=== PATIENT | male | born 1950 | race Caucasian/White ===

== ENCOUNTER 2025-02-05 17:13 | Inpatient (IN) | payer MEDICARE, OTHER ==
[~2025-02-05] VITALS: Ht 167.6 cm; Wt 89.1 kg
[2025-02-05] MEDS ORDERED: VANCOMYCIN 1GM/250ML KIT 250 ML IV ONE (17:30)
--- NOTE | 2025-02-05 17:46 | ED.PDOC ---
History of Present Illness HPI Comments 74 y/o M BECKY, with PMHX of HTN, COPD, and DM presents to the ED for CC of ALOC. Per EMS, patient began to display altered level of conscious x45 min ago. EMS states, upon arrival to scene patient was lethargic and A&Ox2. Patient states, it is 195 and he is 52 years old. Per patient's daughter (power of patent prosecution attorney), patient has been fighting a cold x2days however, he has never became altered in the past. No other history or symptoms obtainable at this time. Time Seen by MD: 17:20 Reviewed Notes: Nurses Notes, Electrical Appliance Servicer Notes, Medications, Allergies Allergies: Coded Allergies: NO KNOWN ALLERGIES (Unverified , 02/05/25) Information Source: Relative (Child), Emergency Med Personnel Mode of Arrival: EMS Severity: Moderate Timing: Minutes Duration: Since onset Prehospital treatment: None Past Medical History PAST MEDICAL HISTORY: COPD, DM, HTN Surgical History: Denies all surgeries Family History Family History: Unknown Social History Smoker: Non-Smoker Alcohol: Denies ETOH Use Drugs: Denies Drug Use Lives In: Home Unable to Obtain due to: Altered Mental Status Physical Exam General Appearance: Moderate Distress HEENT: Normal ENT Inspection, Pharynx Normal, TMs Normal Neck: Full Range of Motion, Non-Tender, Normal, Normal Inspection Respiratory: Chest Non-Tender, Lungs Clear, No Accessory Muscle Use, No Respiratory Distress, Normal Breath Sounds Cardiovascular: No Edema, No JVD, No Murmur, No Gallop, Normal Peripheral Pulses, Regular Rate/Rhythm Breast Exam: Deferred Gastrointestinal: No Organomegaly, Non Tender, No Pulsatile Mass, Normal Bowel Sounds, Soft Genitalia: Deferred Pelvic: Deferred Rectal: Deferred Extremities: No calf tenderness, Normal capillary refill, No pedal edema Musculoskeletal : Apperance: Normal Neurologic: multi operation forming machine setter II-XII nml as Tested, Motor Weakness, No Sensory Deficits, Other (Altered mental status) Cerebellar Function: Unable to Test Reflexes: Normal Skin: Dry, Pallor, Warm Lymphatic: No Adenopathy Was a procedure done? Was a procedure done?: No EKG EKG : Pulse Rate (adult): 119 Ellis: Normal Cardiac Rhythm: ST Block: None Hypertrophy: None ST: Normal Differential Dx Considerations may include: Sepsis, UTI, CVA, generalized weakness X-Ray, Labs, Meds, VS Vital Signs Date Time Temp Pulse Resp B/P (MAP) Pulse Ox O2 Delivery O2 Flow Rate FiO2 02/05/25 19:45 101.1 107 18 131/64 (86) 95 101.1 02/05/25 18:40 117 14 94 Nasal Cannula* 2 28 02/05/25 18:40 98.4 117 14 136/76 (96) 94 98.4 02/05/25 17:59 102.3 02/05/25 17:48 102.3 126 22 147/82 (103) 96 02/05/25 17:46 119 02/05/25 17:38 119 Lab Test 02/05/25 18:50 02/05/25 18:43 Range/Units Urine Color Light-yellow Yellow Urine Clarity Clear Clear Urine pH 5.5 5.0-9.0 Urine Specific [place] 1.019 1.001-1.035 Urine Protein Negative Negative Urine Ketones Negative Negative Urine Blood Negative Negative /uL Urine Nitrite Negative Negative Urine Bilirubin Negative Negative Urine Urobilinogen Normal Negative mg/dL Urine Leukocyte Esterase Negative Negative /uL Urine RBC 2 0 - 3 /hpf Urine Microscopic WBC 1 0-3 /HPF Urine Squamous Epithelial Cells None seen <5 /hpf Urine Bacteria None seen None Seen /hpf Urine Glucose Normal Normal mg/dL White Blood Count 7.8 4.4-10.8 10^3/uL Red Blood Count 4.90 4.5-5.90 10^6/uL Hemoglobin 14.1 13.5-17.5 g/dL Hematocrit 42.9 41.0-53.0 % Mean Corpuscular Volume 87.6 80.0-100.0 fL Mean Corpuscular Hemoglobin 28.7 28.0-32.0 pg Mean Corpuscular Hemoglobin Concent 32.8 32.0-36.0 g/dL Red Cell Distribution Width 15.5 H 11.8-14.3 % Platelet Count 284 140-450 10^3/uL Mean Platelet Volume 7.9 6.9-10.8 fL Neutrophils (%) (Auto) 73.0 37.0-80.0 % Lymphocytes (%) (Auto) 17.3 10.0-50.0 % Monocytes (%) (Auto) 9.1 0.0-12.0 % Eosinophils (%) (Auto) 0.3 0.0-7.0 % Basophils (%) (Auto) 0.3 0.0-2.0 % Neutrophils # (Auto) 5.7 1.6-8.6 10 ^3/uL Lymphocytes # (Auto) 1.4 0.4-5.4 10 ^3/uL Monocytes # (Auto) 0.7 0-1.3 10 ^3/uL Eosinophils # (Auto) 0 0-0.8 10 ^3/uL Basophils # (Auto) 0 0-0.2 10 ^3/uL Nucleated Red Blood Cells 0.2 % Sodium Level 137 136-145 mmol/L Potassium Level 4.4 3.5-5.1 mmol/L Chloride Level 103 98-107 mmol/L Carbon Dioxide Level 24 20-31 mmol/L Anion Gap 10 5-15 Blood Urea Nitrogen 12 9-23 mg/dL Creatinine 1.18 0.700-1.30 mg/dL Glomerular Filtration Rate Calc 65 >90 mL/min BUN/Creatinine Ratio 10.2 10.0-20.0 Serum Glucose 130 H 74-106 mg/dL Lactic Acid Level 2.5 *H 0.4-2.0 mmol/L Calcium Level 9.5 8.7-10.4 mg/dL Current Medications Medications (Trade) Dose Ordered Sig/Missy Route Start Time Stop Time Status Last Admin Sodium Chloride 1,000 ml @ 150 mls/hr Q6H40M ONCE IV 02/05/25 17:30 02/06/25 00:09 02/05/25 19:28 Acetaminophen (Tylenol Tablet) 650 mg ONCE ONCE PO 02/05/25 17:30 02/05/25 17:32 DC 02/05/25 17:59 Ceftriaxone Sodium 50 ml @ 100 mls/hr ONCE ONCE IV 02/05/25 17:30 02/05/25 17:59 DC 02/05/25 19:28 CXR: FINDINGS: Lines and Tubes: None Lungs: No focal consolidation. Pleura: No effusion. No pneumothorax. Cardiomediastinal contours: Unremarkable Bones: No acute osseous abnormality. IMPRESSION: 1. No acute cardiopulmonary disease. ATED BY: RODOLFO OSMAN MD DICTATED DATE/TIME: 02/05/251914 SIGNED BY: RODOLFO OSMAN MD SIGNED DATE/TIME: 02/05/251914 CC: HEAD CT: FINDINGS: Mild generalized cerebral atrophy. No acute intracranial hemorrhage or evidence of large vessel territorial infarction identified at this time. No midline shift. The basilar cisterns are patent. The visualized paranasal sinuses and mastoid air cells are clear. No grossly displaced calvarial abnormalities identified. IMPRESSION: No acute intracranial findings. ATED BY: SHAUN BELL MD DICTATED DATE/TIME: 02/05/251916 SIGNED BY: SHAUN BELL MD SIGNED DATE/TIME: 02/05/251916 CC: At this time, the CBC is within normal limits The chemistry panel is also within normal limits. The patient was lactic acid level came back at 2.5 Blood cultures were drawn on this patient After blood cultures were drawn, the patient was started on Rocephin as well as vancomycin The urine test is negative at this time The patient was febrile upon arrival so was given acetaminophen 650 mg by mouth The patient was being admitted at this time. Images Reviewed?: Images reviewed and evaluated by me Time of 1ST Reevaluation: 17:50 Reevaluation 1ST: Unchanged Patient Education/Counseling: Diagnosis, Treatment, Prognosis Family Education/Counseling: Diagnosis, Treatment, Prognosis Departure 1 Departure Time of Disposition: 20:08 Impression: Primary Impression: Metabolic encephalopathy Additional Impression: Sepsis Qualified Codes: A41.9 - Sepsis, unspecified organism Disposition: ADMITTED INPATIENT [facility]mit to[facility] Condition: Fair Critical Care Note Critical Care Time?: Yes (55 min-critical care time only) Stability Stability form required: Yes Unstable for transfer: Telemetry monitoring (Telemetry monitoring required), ED Physician Assesment (Clinical assesment) Heart Score Heart Score: Heart Score Response (Comments) Value History N/A 0 EKG N/A 0 Age N/A 0 Risk Factors N/A 0 Troponin N/A 0 Total 0 I personally scribed for LUCÍA BARRON MD ([email or web address]) on 02/05/25 at 17:46. Electronically submitted by Lois Sheridan ([email or web address]). I personally scribed for LUCÍA BARRON MD ([email or web address]) on 3/12/25 at 19:52. Electronically submitted by Lois Sheridan ([email or web address]). I personally scribed for LUCÍA BARRON MD ([email or web address]) on 02/05/25 at 19:53. Electronically submitted by Lois Sheridan [email or web address]). LUCÍA BARRON MD Feb 05, 2025 17:46
[2025-02-05] MEDS: ACETAMINOPHEN 325 MG TAB PO ONE (17:59)
[2025-02-05 18:40] VITALS: PULSE 117; RESP 14; O2SAT 94
--- NOTE | 2025-02-05 18:53 | ECG ---
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
[2025-02-05 18:55] LABS: Urine Bacteria None Seen /hpf (None Seen)
[2025-02-05 19:02] LABS: Urine Blood Negative /uL (Negative); Urine Clarity Clear (Clear); Urine Color Light-Yellow (Yellow); Urine Protein, UAD Negative (Negative); Urine Specific Gravity 1.019 (1.001-1.035); Urine Squamous Epithelial Cell None Seen /hpf (<5); Urine Urobilinogen Normal (Negative); Urine WBC 1 /HPF (0-3); Urine pH 5.5 (5.0-9.0)
[2025-02-05 19:03] LABS: Basophils # (auto) 0 10 ^3/uL (0-0.2); Basophils % (auto) 0.3 % (0.0-2.0); Eosinophils # (auto) 0 10 ^3/uL (0-0.8); Eosinophils % (auto) 0.3 % (0.0-7.0); Hematocrit 42.9 % (41.0-53.0); Hemoglobin 14.1 g/dL (13.5-17.5); Lymphocytes # (auto) 1.4 10 ^3/uL (0.4-5.4); Lymphocytes % (auto) 17.3 % (10.0-50.0); Mean Corpuscular Hemoglobin 28.7 pg (28.0-32.0); Mean Corpuscular Hgb Conc. 32.8 g/dL (32.0-36.0); Mean Corpuscular Volume 87.6 fL (80.0-100.0); Monocytes # (auto) 0.7 10 ^3/uL (0-1.3); Monocytes % (auto) 9.1 % (0.0-12.0); Neutrophils # (auto) 5.7 10 ^3/uL (1.6-8.6); Nucleated Red Blood Cells % 0.2 %; Platelet Count (auto) 284 10^3/uL (140-450); Red Cell Distribution Width 15.5 % (11.8-14.3); White Blood Cell 7.8 10^3/uL (4.4-10.8)
[2025-02-05 19:11] LABS: Chloride 103 mmol/L (98-107); Potassium 4.4 mmol/L (3.5-5.1); Sodium 137 mmol/L (136-145)
[2025-02-05 19:12] LABS: Anion Gap 10 (5-15); Calcium 9.5 mg/dL (8.7-10.4); Carbon Dioxide 24 mmol/L (20-31)
[2025-02-05 19:17] LABS: BUN/Creatinine Ratio 10.2 (10.0-20.0); Blood Urea Nitrogen 12 mg/dL (9-23)
--- NOTE | 2025-02-05 19:18 | DVH ---
CHEST RADIOGRAPH Indication: pain Technique: Single frontal view of the chest was obtained Comparison: None FINDINGS: Lines and Tubes: None Lungs: No focal consolidation. Pleura: No effusion. No pneumothorax. Cardiomediastinal contours: Unremarkable Bones: No acute osseous abnormality. IMPRESSION: 1. No acute cardiopulmonary disease.
[2025-02-05 19:19] LABS: Glucose 130 mg/dL (74-106)
--- NOTE | 2025-02-05 19:20 | DVH ---
CT BRAIN WITHOUT CONTRAST HISTORY: aloc TECHNIQUE: Axial scans were obtained from the skull base through the vertex without contrast. [place] l and coronal reformats were generated. One or more of the following radiation dose reduction techniq ues were used for this examination: automated exposure control, adjustment of the mA and/or kV accord ing to patient size, use of iterative reconstruction technique. COMPARISON: None FINDINGS: Mild generalized cerebral atrophy. No acute intracranial hemorrhage or evidence of large vessel zack torial infarction identified at this time. No midline shift. The basilar cisterns are patent. The visualized paranasal sinuses and mastoid air cells are clear. No grossly displaced calvarial abno rmalities identified. IMPRESSION: No acute intracranial findings.
[2025-02-05] MEDS: SODIUM CHLORIDE 0.9% 1,000 ML IV ONE ×2 (19:28→23:00)
[2025-02-05] MEDS: cefTRIAXone 1GM/50ML D5W 50 ML IV ONE (19:28)
[2025-02-05 19:43] LABS: Lactic Acid w/Reflex 2.5 mmol/L (0.4-2.0)
[2025-02-05 21:00] VITALS: PULSE 107; RESP 18; O2SAT 95
[2025-02-05 21:44] LABS: COVID19 ANTIGEN SOFIA FIA NEGATIVE (NEGATIVE); Rapid Influenza A Negative (Negative); Rapid Influenza B Negative (Negative)
[2025-02-05] MEDS ORDERED: DOCUSATE SOD 100 MG CAP PO PRN ×2 (22:15→23:00)
[2025-02-05] MEDS ORDERED: MORPHINE SULFATE INJ 2 MG/ml SYRG IV PRN (22:15)
[2025-02-05] MEDS ORDERED: VANCOMYCIN PER PHARMACY 0 MG IV SCH (22:15)
[2025-02-05] MEDS ORDERED: ONDANSETRON HCL 4 MG/2 ML VIAL IV PRN ×2 (22:15→23:00)
[2025-02-05] MEDS ORDERED: ACETAMINOPHEN 325 MG TAB PO PRN (22:15)
--- NOTE | 2025-02-05 22:19 | DVHHPRES ---
History of Present Illness Resident Creating Document: ALLY GALINDO RESDIENT History of Present Illness This is a 74-year-old male with past history of COPD, hypertension, prediabetic, dyslipidemia, BPH and chronic back pain brought to the hospital due to alveolar ALOC. Per patient's , he got disoriented around 45 minutes before hospital arrival, upon EMS arrival at the scene, patient was A&O x2. During my assessment patient reports cough and cold-like symptoms since 2 days. He has a sick contact with the (who suffers from cold). He denies chest pain, shortness of breath, nausea, vomiting, abdominal pain, or any recent travel. Patient has dental implant and removed sutures 5 days, has taken prophylactic antibiotic penicillin. PMHx: COPD, hypertension, prediabetic, dyslipidemia, BPH and chronic back pain PSHx: Back surgery for herniated disc, right shoulder surgery Social history: Lives in [facility] with the family, ex-smoker with 25 pack year history, denies any other drug use Home medication: Buprenorphine, duloxetine, gabapentin, stool softener, omep razole, Flomax, metformin, albuterol, Trelegy, Allergic history: No known allergy Review of Systems Review of Systems General: patient denies fever, fatigue, weaknes, sweating, any recent changes in appetite and weight HEENT: No headaches, visiual changes, hearing loss, tinnitus, nasal congestion and discharge, and sore throat. Cardiovascular: Denies chest pain, palpitations, dyspnea on exertion, orthopnea, or claudication. Respiratory: Reports cough Gastrointestinal: Denies nausea, vomiting, dysphagia, odynophagia, heartburn, abdominal pain, flatulence, bloating, diarrhea, constipation, change in stool, or blood in stool. Genitourinary: No dysuria, hematuria, discharge, frequency, urgency, nocturia, incontinence, and urinary retention. Endocrine: No heat or cold intolerance, polydipsia, polyuria, and polyphagia. Neurological: No dizziness, extremity weakness and numbness, tremors, gait disturbance, seizures, and memory impairment. Psychiatric: Denies depression, anxiety,or insomnia. Musculoskeletal: Denies neck pain, stiffness and swelling, back pain, muscle weakness, joint pain, stiffness, swelling, or limited range of motion. Skin: No rashes, itching, skin lesion, changes in hair, nail, skin texture and breast. Hematologic/Lymphatic: Denies easy bruising, bleeding tendencies, or lymph node enlargement. Allergies: Coded Allergies: NO KNOWN ALLERGIES (Unverified , 02/05/25) Medications Current Medications Medications Dose Ordered Sig/Missy Route Start Time Stop Time Status Last Admin Dose Admin Docusate Sodium 100 mg BIDPRN PRN PO 02/05/25 22:15 UNV Ondansetron HCl 4 mg Q4HP PRN IV 02/05/25 22:15 UNV Morphine Sulfate 2 mg Q4HPRN PRN IV 02/05/25 22:15 UNV Enoxaparin Sodium 40 mg DAILY SC 02/06/25 10:00 UNV Buprenorphine HCl 1 tab DAILY SL 02/06/25 10:00 UNV Ceftriaxone Sodium 50 ml @ 100 mls/hr DAILY@09 IV 02/06/25 09:00 UNV Vancomycin HCl 0 ml @ 0 mls/hr UD IV 02/05/25 22:15 UNV Ipratropium [place] 0.5 mg Q6HR NEB 02/06/25 00:00 UNV Levalbuterol HCl 0.625 mg Q6HR NEB 02/06/25 00:00 UNV Gabapentin 100 mg TID PO 02/06/25 06:00 UNV Acetaminophen 650 mg Q4HP PRN PO 02/05/25 22:15 UNV Tamsulosin HCl 0.4 mg QPM PO 02/06/25 18:00 UNV Azithromycin 250 ml @ 125 mls/hr DAILY IV 02/06/25 10:00 UNV Exam Vital Signs Vital Signs Date Time Temp Pulse Resp B/P (MAP) Pulse Ox O2 Delivery O2 Flow Rate FiO2 02/05/25 22:11 101.1 107 18 131/64 (86) 95 101.1 02/05/25 21:00 Nasal Cannula* 2 28 Exam General Appearance: Alert, Oriented X3, Cooperative, No acute distress HEENT: Atraumatic, PERRLA, EOMI, Mucous membrane moist/pink Respiratory: Bilateral crackles Cardiovascular: Regular rate, Normal S1, Normal S2, No murmurs, no chest wall tenderness Abdominal: Normal bowel sounds, Soft, No tenderness, No hepatospenomegaly, No masses Extremities: Bilateral grade 1 pedal edema Skin: No rashes, No breakdown, No significant lesion Neuro: Normal gait, Normal speech, Strength at 5/5 X4 ext, Normal tone, Sensation intact, Cranial nerves 3-12 NL, Reflexes 2+ Psych/Mental Status: Mental status NL, Mood NL Labs/Xrays Labs Test 02/05/25 21:06 02/05/25 20:00 02/05/25 18:50 02/05/25 18:43 Range/Units Lactic Acid Level 1.1 0.4-2.0 mmol/L Influenza Type A Antigen Negative Negative Influenza Type B Antigen Negative Negative SARS-CoV-2 Antigen (Rapid) Negative NEGATIVE Urine Color Light-yellow Yellow Urine Clarity Clear Clear Urine pH 5.5 5.0-9.0 Urine Specific [place] 1.019 1.001-1.035 Urine Protein Negative Negative Urine Ketones Negative Negative Urine Blood Negative Negative /uL Urine Nitrite Negative Negative Urine Bilirubin Negative Negative Urine Urobilinogen Normal Negative mg/dL Urine Leukocyte Esterase Negative Negative /uL Urine RBC 2 0 - 3 /hpf Urine Microscopic WBC 1 0-3 /HPF Urine Squamous Epithelial Cells None seen <5 /hpf Urine Bacteria None seen None Seen /hpf Urine Glucose Normal Normal mg/dL White Blood Count 7.8 4.4-10.8 10^3/uL Red Blood Count 4.90 4.5-5.90 10^6/uL Hemoglobin 14.1 13.5-17.5 g/dL Hematocrit 42.9 41.0-53.0 % Mean Corpuscular Volume 87.6 80.0-100.0 fL Mean Corpuscular Hemoglobin 28.7 28.0-32.0 pg Mean Corpuscular Hemoglobin Concent 32.8 32.0-36.0 g/dL Red Cell Distribution Width 15.5 H 11.8-14.3 % Platelet Count 284 140-450 10^3/uL Mean Platelet Volume 7.9 6.9-10.8 fL Neutrophils (%) (Auto) 73.0 37.0-80.0 % Lymphocytes (%) (Auto) 17.3 10.0-50.0 % Monocytes (%) (Auto) 9.1 0.0-12.0 % Eosinophils (%) (Auto) 0.3 0.0-7.0 % Basophils (%) (Auto) 0.3 0.0-2.0 % Neutrophils # (Auto) 5.7 1.6-8.6 10 ^3/uL Lymphocytes # (Auto) 1.4 0.4-5.4 10 ^3/uL Monocytes # (Auto) 0.7 0-1.3 10 ^3/uL Eosinophils # (Auto) 0 0-0.8 10 ^3/uL Basophils # (Auto) 0 0-0.2 10 ^3/uL Nucleated Red Blood Cells 0.2 % Sodium Level 137 136-145 mmol/L Potassium Level 4.4 3.5-5.1 mmol/L Chloride Level 103 98-107 mmol/L Carbon Dioxide Level 24 20-31 mmol/L Anion Gap 10 5-15 Blood Urea Nitrogen 12 9-23 mg/dL Creatinine 1.18 0.700-1.30 mg/dL Glomerular Filtration Rate Calc 65 >90 mL/min BUN/Creatinine Ratio 10.2 10.0-20.0 Serum Glucose 130 H 74-106 mg/dL Calcium Level 9.5 8.7-10.4 mg/dL Assessment/Plan Assessment/Plan Acute metabolic encephalopathy, likely due to sepsis Sepsis, likely due to pneumonia Pneumonia, likely due to Gram-positive Gram-negative bacteria/viral Possible heart failure exacerbation History of COPD Head CT scan shows chronic atrophic changes Chest x-ray shows no obvious consolidation Check sputum culture, and MRSA nares Echocardiogram Empiric antibiotic ceftriaxone and azithromycin Breathing treatment IV Lasix Chronic back pain due to herniated disc Hypertension Dyslipidemia BPH Prediabetic Continue home meds DIET: Cardiac diet DVT PROPHYLAXIS: Lovenox GI PROPHYLAXIS:: Protonix BOWEL REGIMEN: Colace CODE STATUS: Goal of care discussed for more than 21 minutes, full code DISPOSITION: Telemetry Patient's status and paln discussed with the patient and the patient's daughter and at the bedside Case discussed with Dr. Aldana. Plan discussed with: Patient Date of Service: Feb 05, 2025 Billing Provider: VARINDER ALDANA MD Common Visit Codes: 97315-VWIWZXH INP/OBS CARE (HIGH) Secondary Visit Codes: [id number]-[id number] CARE PLAN 30 MINUTES ALLY GALINDO Feb 05, 2025 22:19 VARINDER ALDANA MD Feb 06, 2025 11:33
[2025-02-05] MEDS ORDERED: AZITHROMYCIN 500MG/ 250ML 250 ML IV ONE (22:30)
[2025-02-05] MEDS ORDERED: VANCOMYCIN 1GM/250mL NS or D5W KIT IV SCH (22:45)
[2025-02-05 22:51] VITALS: O2SAT 98
[2025-02-05 23:00] VITALS: BP 131/64; PULSE 84; RESP 16; TEMP 101.1; O2SAT 98
[2025-02-05] MEDS: FUROSEMIDE 20 MG/2 ML VIAL IV SCH (23:00)
[2025-02-05] MEDS: TAMSULOSIN HYDROCHLORIDE 0.4 MG CAP PO SCH (23:00)
[2025-02-05] MEDS: VANCOMYCIN 1GM/250mL NS or D5W KIT IV SCH (23:00)
[2025-02-05] MEDS: GABAPENTIN 100 MG CAP PO SCH (23:00)
[2025-02-05] MEDS: FUROSEMIDE 20 MG/2 ML VIAL IV ONE (23:13)
[2025-02-05] MEDS: TAMSULOSIN HYDROCHLORIDE 0.4 MG CAP PO ONE (23:13)
[2025-02-05] MEDS: PANTOPRAZOLE 40 MG TAB PO ONE (23:13)
[2025-02-05 23:14] LABS: Amphetamine Screen, Urine Neg (NEGATIVE); Barbiturate Scree,Urine Neg (NEGATIVE); Benzodiazephine Screen, Urine Neg (NEGATIVE); Cannabinoid Screen, Urine Neg (NEGATIVE); Cocaine Screen, Urine Neg (NEGATIVE); Opiate Scree,Urine Neg (NEGATIVE); Phencyclidine Screen, Urine Neg (NEGATIVE)
[2025-02-05] MEDS: AZITHROMYCIN 500MG/ 250ML 250 ML IV ONE (23:14)
[2025-02-05 23:18] LABS: INR 0.98 (0.9-1.15); Partial Thromboplastin Time 29.2 SEC (24.5-34.5); Prothrombin Time 10.4 sec (9.3-11.8)
[2025-02-05 23:22] LABS: Phosphorus 3.6 mg/dL (2.4-5.1)
[2025-02-05 23:31] LABS: CRP High Sensitivity 4.32 mg/dL (<1.0)
[2025-02-06] VITALS (18 sets, daily range): BP systolic 96–145; BP diastolic 60–76; PULSE 61–83; RESP 16–20; TEMP 98.3–99.1; O2SAT 93–100
[2025-02-06] MEDS ORDERED: LEVALBUTEROL HCL 1.25 MG/3 ML NEB NEB SCH
[2025-02-06] MEDS ORDERED: IPRATROPIUM BROM 0.5 MG/2.5ML INH SOL NEB SCH
[2025-02-06] MEDS: LEVALBUTEROL HCL 1.25 MG/3 ML NEB NEB SCH (00:07)
[2025-02-06] MEDS: IPRATROPIUM BROM 0.5 MG/2.5ML INH SOL NEB SCH (00:07)
[2025-02-06] MEDS ORDERED: ALFU1TAB15 PO (04:49)
[2025-02-06] MEDS ORDERED: CLON-1004 PO (04:49)
[2025-02-06] MEDS ORDERED: CELE200C PO (04:49)
[2025-02-06] MEDS ORDERED: SENN-62 PO (04:49)
[2025-02-06] MEDS ORDERED: FLUT1AER3 IN (04:49)
[2025-02-06] MEDS ORDERED: AML5T PO (04:49)
[2025-02-06] MEDS ORDERED: ATOR40TA52 PO (04:49)
[2025-02-06] MEDS ORDERED: CHOL20007 PO (04:49)
[2025-02-06] MEDS ORDERED: GABA-339 PO (04:49)
[2025-02-06] MEDS ORDERED: DULO60CA41 PO (04:49)
[2025-02-06] MEDS ORDERED: BUPR2SUB SL (04:49)
[2025-02-06] MEDS ORDERED: OMEP20TA PO (04:49)
[2025-02-06] MEDS: ACETAMINOPHEN 325 MG TAB PO PRN (04:54)
[2025-02-06] MEDS ORDERED: GABAPENTIN 100 MG CAP PO SCH (06:00)
[2025-02-06 08:00] LABS: Basophils # (auto) 0 10 ^3/uL (0-0.2); Basophils % (auto) 0.6 % (0.0-2.0); Eosinophils # (auto) 0 10 ^3/uL (0-0.8); Eosinophils % (auto) 0.4 % (0.0-7.0); Hematocrit 40.5 % (41.0-53.0); Hemoglobin 13.3 g/dL (13.5-17.5); Lymphocytes # (auto) 1.7 10 ^3/uL (0.4-5.4); Lymphocytes % (auto) 30.8 % (10.0-50.0); Mean Corpuscular Hemoglobin 27.8 pg (28.0-32.0); Mean Corpuscular Hgb Conc. 32.7 g/dL (32.0-36.0); Mean Corpuscular Volume 85.1 fL (80.0-100.0); Monocytes # (auto) 0.8 10 ^3/uL (0-1.3); Monocytes % (auto) 13.5 % (0.0-12.0); Neutrophils # (auto) 3.1 10 ^3/uL (1.6-8.6); Neutrophils % (auto) 54.7 % (37.0-80.0); Nucleated Red Blood Cells % 0.2 %; Platelet Count (auto) 266 10^3/uL (140-450); Red Blood Cells 4.76 10^6/uL (4.5-5.90); Red Cell Distribution Width 15.4 % (11.8-14.3); White Blood Cell 5.6 10^3/uL (4.4-10.8)
[2025-02-06 08:02] LABS: Alanine Aminotransferase 18 U/L (7-40); Alkaline Phosphatase 50 U/L (46-116); Anion Gap 9 (5-15); BUN/Creatinine Ratio 11.5 (10.0-20.0); Blood Urea Nitrogen 13 mg/dL (9-23); Calcium 9.4 mg/dL (8.7-10.4); Carbon Dioxide 29 mmol/L (20-31); Chloride 102 mmol/L (98-107); Glucose 124 mg/dL (74-106); Potassium 3.6 mmol/L (3.5-5.1); Sodium 140 mmol/L (136-145); Total Protein 6.8 g/dL (5.7-8.2)
[2025-02-06 08:03] LABS: Albumin 4.4 g/dL (3.2-4.8); Aspartate Aminotransferase 20 U/L (13-40); Bilirubin, Total 0.4 mg/dL (0.2-1.0)
[2025-02-06] MEDS ORDERED: cefTRIAXone 1GM/50ML D5W 50 ML IV SCH (09:00)
[2025-02-06] MEDS ORDERED: AZITHROMYCIN 500MG/ 250ML 250 ML IV SCH (10:00)
[2025-02-06] MEDS ORDERED: FUROSEMIDE 20 MG/2 ML VIAL IV SCH (10:00)
[2025-02-06] MEDS ORDERED: BUPRENORPHINE -NALOXONE 2-0.5mg SL TAB SL SCH (10:00)
[2025-02-06] MEDS ORDERED: ENOXAPARIN SOD 40 MG/0.4 ML SYRINGE SC SCH (10:00)
[2025-02-06] MEDS ORDERED: VANCOMYCIN 750MG KIT 100 ML IV SCH (10:15)
[2025-02-06] MEDS: BUPRENORPHINE -NALOXONE 2-0.5mg SL TAB SL SCH (12:50)
[2025-02-06] MEDS: CYANOCOBALAMIN (B-12) 1000 MCG/1 ML VIAL IM ONE ×2 (12:52→13:15)
[2025-02-06] MEDS: ENOXAPARIN SOD 40 MG/0.4 ML SYRINGE SC SCH (12:53)
[2025-02-06] MEDS: MORPHINE SULFATE INJ 2 MG/ml SYRG IV PRN (15:44)
--- NOTE | 2025-02-06 15:47 | DVH ---
CT Chest without intravenous contrast INDICATION: PNA TECHNIQUE: Multidetector spiral CT of the chest was performed from the lung apices to the upper abdom en. Axial, coronal and sagittal multiplanar reformats were performed. High-resolution CT protocol uti lized. Radiation Dose : 1. Chest: CTDI volume is 41.86 mGy. Dose-length product is 2079.35 mGy*cm The dose indicators for CT are the volume Computed Tomography (CT) Dose Index (CTDIvol) and the Dose Length Product (DLP), and are measured in units of mGy and mGy-cm, respectively. These indicators are not patient dose, but values generated from the CT scanner acquisition factors. The report includes radiation exposure data for exposures received during this examination. Comparison: None Findings: Lower neck: Normal thyroid. Lungs: Mild centrilobular emphysema. Mild diffuse interlobular septal thickening. Diffuse tree-in-bud nodularity most prominent at the lung bases. Heart/Vascular Structures: Cardiomegaly. Coronary artery calcifications. Vascular calcifications of t he aorta. Lymph Nodes: No adenopathy Pleura: No pleural effusion or significant pneumothorax. Musculoskeletal: No acute osseous abnormality. Degenerative changes of the spine. Soft tissues: Normal. Upper abdomen: Hepatic steatosis. Post cholecystectomy. Fatty atrophy of the pancreas. Moderate hia ankur hernia. IMPRESSION: Mild interlobular septal thickening and diffuse tree-in-bud nodularity most prominent in the lung bas es. This may represent atypical infectious or inflammatory process and possible mild pulmonary vascu lar congestion. Mild centrilobular emphysema. Radiation optimization: All CT scans at this facility use at least one of these dose optimization shahbaz hniques: automated exposure control mA and/or kV adjustment per patient size (includes targeted exam s where dose is matched to clinical indication) or iterative reconstruction.
[2025-02-06] MEDS ORDERED: TAMSULOSIN HYDROCHLORIDE 0.4 MG CAP PO SCH (18:00)
--- NOTE | 2025-02-06 18:39 | DVHSR ---
APPROVED REPORT EXAM: Two-dimensional and M-mode echocardiogram with Doppler and color Doppler. Blood Pressure: 132/75 mmHg INDICATION Heart Failure RISK FACTORS Height: 5'6", Weight: 176 DIMENSIONS LVDd5.0 (3.8-5.7cm)LA (2D)3.9 (1.9-4.0cm)Aortic Root3.9 (2.0-3.7cm) LVDs3.6 (2.5-4.0cm)LA (MM) (1.9-4.0cm)Aortic Cusp Exc1.5 (1.5-2.0cm) EF (%) 55.0 (55-70%)Rt. Atrium4.2 (1.9-4.0cm)Asc. Aorta3.8 cm IVSd1.0 (0.7-1.1cm)RV (D)3.5 (1.8-2.4cm) PWd1.3 (0.7-1.1cm) Mitral Valve MitralMitral Stenosis E wave0.87m/sMV Mean GR.mmHg A wave1.01m/sMV Peak GR.mmHg E/A ratio0.92D MVAcm2 DECEL [id number] 1/2 [place] Aortic Valve Aortic ValveAortic Stenosis V10.74m/Cande Mean GR.3mmHg V21.03m/Cande Peak GR.4mmHg LVOT Diameter2.3 (1.8-2.4cm)Doppler AVA2.98cm2 Pulmonic Valve V20.80m/s Tricuspid Valve TR Velocity2.91m/s [id number] Conclusion Normal biventricular size and systolic function. LVEF 60-65%. Normal wall motion. Mild LVH. Grade 1 d iastolic dysfunction. Mild TR. Trace PI. RVSP estimated at 36 mmHg + CVP. IVC not well seen. No pericardial effusion.
[2025-02-06] MEDS: cefTRIAXone 1GM/50ML D5W 50 ML IV SCH (20:52)
--- NOTE | 2025-02-06 21:05 | DVHPNRES ---
Progress Note Date Seen: Feb 06, 2025 Resident Creating Document: NORAH OLMSTEAD RESIDENT Medical Necessity Reason Pt with a Central, PICC or Fol: No Subjective Review of Systems This is a 74-year-old male who was brought to the hospital due to alveolar ALOC. PMHx: COPD, hypertension, prediabetic, dyslipidemia, BPH and chronic back pain PSHx: Back surgery for herniated disc, right shoulder surgery Social history: Lives in [facility] with the family, ex-smoker with 25 pack year history, denies any other drug use Home medication: Buprenorphine, duloxetine, gabapentin, stool softener, omeprazole, Flomax, metformin, albuterol, Trelegy, Allergic history: No known allergy Per patient's and daughter, patient got disoriented around 45 minutes before hospital arrival, upon EMS arrival at the scene, patient was A&O x2. During my assessment patient reports cough and cold-like symptoms since 2 days. He has a sick contact with the (who suffers from cold). He denies chest pain, shortness of breath, nausea, vomiting, abdominal pain, or any recent travel. Patient has dental implant and removed sutures 5 days, has taken prophylactic antibiotic penicillin. On my assessment, I spoke to the daughter which stated that his that has been weak, lethargic, he had some diminishes before coming here, he stated that he has also been having swollen of his hands and feet. Patient was started on broad-spectrum antibiotics, he was also started on Lasix, an echocardiogram was also ordered, he was placed on DuoNebs. Objective vital signs Vital Sign Date Time Temp Pulse Resp B/P (MAP) Pulse Ox O2 Delivery O2 Flow Rate FiO2 02/06/25 18:38 72 18 97 02/06/25 18:24 Room Air 02/06/25 18:24 0 21 02/06/25 17:11 99.1 140/74 (96) 99.1 Total Intake and Output 02/05/25 02/05/25 02/06/25 15:00 23:00 07:00 Intake Total 500 ml 1800 ml Output Total 150 ml Balance 500 ml 1650 ml medications Current Medications Medications Dose Ordered Sig/Missy Route Start Time Stop Time Status Last Admin Dose Admin Docusate Sodium 100 mg BIDPRN PRN PO 02/05/25 23:00 Ondansetron HCl 4 mg Q4HP PRN IV 02/05/25 23:00 Morphine Sulfate 2 mg Q4HPRN PRN IV 02/05/25 23:00 02/06/25 15:44 2 MG Enoxaparin Sodium 40 mg DAILY SC 02/06/25 10:00 02/06/25 12:53 40 MG Buprenorphine HCl 1 tab DAILY SL 02/06/25 10:00 02/06/25 12:50 1 TAB Ceftriaxone Sodium 50 ml @ 100 mls/hr DAILY@2100 IV 02/06/25 21:00 02/06/25 20:52 100 MLS/HR Ipratropium [place] 0.5 mg Q6HR NEB 02/06/25 00:00 02/06/25 18:24 0.5 MG Levalbuterol HCl 0.625 mg Q6HR NEB 02/06/25 00:00 02/06/25 18:24 0.625 MG Gabapentin 100 mg TID PO 02/05/25 23:00 02/06/25 15:41 100 MG Acetaminophen 650 mg Q4HP PRN PO 02/05/25 23:00 02/06/25 04:54 650 MG Tamsulosin HCl 0.4 mg QPM PO 02/05/25 23:00 02/06/25 18:32 0.4 MG Azithromycin 250 ml @ 125 mls/hr DAILY@2200 IV 02/06/25 22:00 Furosemide 20 mg DAILY IV 02/05/25 23:00 02/06/25 12:48 20 MG Cyanocobalamin 500 mcg DAILY PO 02/07/25 10:00 Examination General: Awake, alert, comfortable appearing, in no acute distress. HEENT: Head is normocephalic and atraumatic. Pupils are equal, round, and reactive to light. Neck: Supple with no cervical lymphadenopathy Heart: Regular rate without murmur, rub, or gallop. Lungs: Bilateral scattered crackles Abdomen: No external sign of injury. Bowel sounds are present. Abdomen is soft, nontender. No rebound, no guarding, no rigidity. There are no palpable masses. There is no flank pain on exam. Extremities: Strong peripheral pulses. There is no clubbing, no cyanosis, and mild nonpitting edema Skin: No rash. Neurologic: Cranial nerves II-XII intact without motor, sensory, or cerebellar deficit, no asterixis. laboratory and microbiology Laboratory Tests 02/06/25 06:45 Test 02/06/25 06:45 Range/Units Serum Glucose 124 H 74-106 mg/dL Microbiology Date/Time Source Procedure Growth Status 02/06/25 06:15 Nose MRSA Screen - Final Complete 02/05/25 18:43 Blood Blood Culture - Preliminary NO GROWTH AFTER 24 HOURS OF INCUBATION. Resulted Labs and/or images reviewed: Labs reviewed by me, Image(s) reviewed by me Problem List/Assessment/Plan Problem List/Assessment/Plan #Metabolic encephalopathy, likely due to sepsis #Sepsis, likely due to pneumonia #Pneumonia, likely due to Gram-positive Gram-negative bacteria/viral, aatypicall #Acute diastolic CHF #History of COPD Head CT scan shows chronic atrophic changes Pending sputum culture, and MRSA nares Echocardiogram EF 60-65% Continue Lasix as tolerated Continue antibiotic ceftriaxone and azithromycin IV DuoNebs Ordered CT chest #Chronic back pain due to herniated disc #Hypertension #Dyslipidemia #BPH #Prediabetic Continue home meds #Vitamin B 12 deficiency Vit b12 IM and PO DIET: Cardiac diet DVT PROPHYLAXIS: Lovenox GI PROPHYLAXIS:: Protonix CODE STATUS: Goal of care discussed for more than 30 minutes, full code Case discussed with Dr. Aldana. Plan discussed with: Patient, Other (RN) My Orders My Orders Orders - NORAH OLMSTEAD RESIDENT Procedure Category Date Status Time Cyanocobalamin PHA 02/07/25 In Process (Vitamin B-12) 10:00 Basic Metabolic Panel LAB 02/07/25 Verified 04:00 Magnesium LAB 02/07/25 Verified 04:00 Date of Service: Feb 06, 2025 Billing Provider: VARINDER ALDANA MD Common Visit Codes: [id number] INP/OBS CARE(HIGH) Secondary Visit Codes: [id number] CARE PLAN 30 MINUTES NORAH OLMSTEAD RESIDENT Feb 06, 2025 21:05 VARINDER ALDANA MD Feb 07, 2025 12:32
[2025-02-06] MEDS: AZITHROMYCIN 500MG/ 250ML 250 ML IV SCH (22:29)
[2025-02-07] VITALS (11 sets, daily range): BP systolic 121–146; BP diastolic 72–83; PULSE 68–84; RESP 16–18; TEMP 98.3–98.7; O2SAT 93–100
[2025-02-07] MEDS: BUPRENORPHINE -NALOXONE 2-0.5mg SL TAB SL ONE (08:21)
[2025-02-07] MEDS: CYANOCOBALAMIN 500 MCG TAB PO SCH (09:41)
[2025-02-07] MEDS: POTASSIUM CHL 20 Meq TABLET PO ONE (09:42)
[2025-02-07 09:50] LABS: Basophils # (auto) 0 10 ^3/uL (0-0.2); Basophils % (auto) 0.4 % (0.0-2.0); Eosinophils # (auto) 0 10 ^3/uL (0-0.8); Eosinophils % (auto) 0.8 % (0.0-7.0); Hematocrit 40.1 % (41.0-53.0); Hemoglobin 13.5 g/dL (13.5-17.5); Lymphocytes # (auto) 1.8 10 ^3/uL (0.4-5.4); Lymphocytes % (auto) 32.2 % (10.0-50.0); Mean Corpuscular Hemoglobin 28.7 pg (28.0-32.0); Mean Corpuscular Hgb Conc. 33.8 g/dL (32.0-36.0); Mean Corpuscular Volume 84.8 fL (80.0-100.0); Monocytes # (auto) 0.5 10 ^3/uL (0-1.3); Monocytes % (auto) 9.1 % (0.0-12.0); Neutrophils # (auto) 3.2 10 ^3/uL (1.6-8.6); Neutrophils % (auto) 57.5 % (37.0-80.0); Nucleated Red Blood Cells % 0.1 %; Platelet Count (auto) 275 10^3/uL (140-450); Red Blood Cells 4.72 10^6/uL (4.5-5.90); Red Cell Distribution Width 15.2 % (11.8-14.3); White Blood Cell 5.7 10^3/uL (4.4-10.8)
[2025-02-07 09:54] LABS: Chloride 103 mmol/L (98-107); Potassium 3.7 mmol/L (3.5-5.1); Sodium 139 mmol/L (136-145)
[2025-02-07 09:55] LABS: Anion Gap 9 (5-15); Carbon Dioxide 27 mmol/L (20-31)
[2025-02-07 09:56] LABS: Calcium 9.9 mg/dL (8.7-10.4)
[2025-02-07 10:01] LABS: BUN/Creatinine Ratio 10.4 (10.0-20.0); Blood Urea Nitrogen 11 mg/dL (9-23); Magnesium 2.3 mg/dL (1.6-2.6)
[2025-02-07 10:11] LABS: Glucose 157 mg/dL (74-106)
[2025-02-07] MEDS ORDERED: CEFP200T15 PO (10:29)
[2025-02-07] MEDS ORDERED: ALBUAER3 IN (10:29)
[2025-02-07] MEDS ORDERED: AZIT-43 PO (10:29)
[2025-02-07] MEDS ORDERED: CYAN500T3 PO (10:29)
--- NOTE | 2025-02-07 10:54 | DVHDSRES ---
Discharge Summary Date of Admission Resident Creating Document: NORAH OLMSTEAD RESIDENT Feb 05, 2025 at 22:05 Date of Discharge: Feb 07, 2025 Admitting Diagnosis Pneumonia Labs/Diagnostic Data: Laboratory Results Test 02/07/25 09:14 02/06/25 06:45 02/05/25 22:43 02/05/25 21:06 White Blood Count 5.7 10^3/uL (4.4-10.8) Red Blood Count 4.72 10^6/uL (4.5-5.90) Hemoglobin 13.5 g/dL (13.5-17.5) Hematocrit 40.1 % (41.0-53.0) Mean Corpuscular Volume 84.8 fL (80.0-100.0) Mean Corpuscular Hemoglobin 28.7 pg (28.0-32.0) Mean Corpuscular Hemoglobin Concent 33.8 g/dL (32.0-36.0) Red Cell Distribution Width 15.2 % (11.8-14.3) Platelet Count 275 10^3/uL (140-450) Mean Platelet Volume 8.2 fL (6.9-10.8) Neutrophils (%) (Auto) 57.5 % (37.0-80.0) Lymphocytes (%) (Auto) 32.2 % (10.0-50.0) Monocytes (%) (Auto) 9.1 % (0.0-12.0) Eosinophils (%) (Auto) 0.8 % (0.0-7.0) Basophils (%) (Auto) 0.4 % (0.0-2.0) Neutrophils # (Auto) 3.2 10 ^3/uL (1.6-8.6) Lymphocytes # (Auto) 1.8 10 ^3/uL (0.4-5.4) Monocytes # (Auto) 0.5 10 ^3/uL (0-1.3) Eosinophils # (Auto) 0 10 ^3/uL (0-0.8) Basophils # (Auto) 0 10 ^3/uL (0-0.2) Nucleated Red Blood Cells 0.1 % Sodium Level 139 mmol/L (136-145) Potassium Level 3.7 mmol/L (3.5-5.1) Chloride Level 103 mmol/L (98-107) Carbon Dioxide Level 27 mmol/L (20-31) Anion Gap 9 (5-15) Blood Urea Nitrogen 11 mg/dL (9-23) Creatinine 1.06 mg/dL (0.700-1.30) Glomerular Filtration Rate Calc 74 mL/min (>90) BUN/Creatinine Ratio 10.4 (10.0-20.0) Serum Glucose 157 mg/dL (74-106) Calcium Level 9.9 mg/dL (8.7-10.4) Magnesium Level 2.3 mg/dL (1.6-2.6) Vancomycin Level Trough < 3.0 ug/mL (5-10) Total Bilirubin 0.4 mg/dL (0.2-1.0) Aspartate Amino Transferase (AST) 20 U/L (13-40) Alanine Aminotransferase (ALT) 18 U/L (7-40) Alkaline Phosphatase 50 U/L (46-116) Total Protein 6.8 g/dL (5.7-8.2) Albumin 4.4 g/dL (3.2-4.8) Prothrombin Time 10.4 sec (9.3-11.8) Prothrombin Time INR 0.98 (0.9-1.15) Activated Partial Thromboplast Time 29.2 SEC (24.5-34.5) Hemoglobin A1c 6.4 % A1C (<5.7) Phosphorus Level 3.6 mg/dL (2.4-5.1) C-Reactive Protein High Sensitivity 4.32 mg/dL (<1.0) B-Type Natriuretic Peptide 108.85 pg/mL (0-100) Triglycerides Level 147 mg/dL (< 150) Cholesterol Level 156 mg/dL (< 200) LDL Cholesterol 96 mg/dL (< 100) HDL Cholesterol 37 mg/dL (40-59) Vitamin B12 Level 241 pg/mL (211-911) Vitamin D 25-Hydroxy 33.4 ng/mL (30.0-100) Thyroid Stimulating Hormone (TSH) 0.86 uIU/mL (0.55-4.78) Lactic Acid Level 1.1 mmol/L (0.4-2.0) Test 02/05/25 20:00 02/05/25 18:50 Influenza Type A Antigen Negative (Negative) Influenza Type B Antigen Negative (Negative) SARS-CoV-2 Antigen (Rapid) Negative (NEGATIVE) Urine Color Light-yellow (Yellow) Urine Clarity Clear (Clear) Urine pH 5.5 (5.0-9.0) Urine Specific [place] 1.019 (1.001-1.035) Urine Protein Negative (Negative) Urine Ketones Negative (Negative) Urine Blood Negative /uL (Negative) Urine Nitrite Negative (Negative) Urine Bilirubin Negative (Negative) Urine Urobilinogen Normal mg/dL (Negative) Urine Leukocyte Esterase Negative /uL (Negative) Urine RBC 2 /hpf (0 - 3) Urine Microscopic WBC 1 /HPF (0-3) Urine Squamous Epithelial Cells None seen /hpf (<5) Urine Bacteria None seen /hpf (None Seen) Urine Glucose Normal mg/dL (Normal) Urine Opiates Screen Neg (NEGATIVE) Urine Fentanyl Screen Neg (NEGATIVE) Urine Barbiturates Screen Neg (NEGATIVE) Urine Phencyclidine Screen Neg (NEGATIVE) Urine Amphetamines Screen Neg (NEGATIVE) Urine Benzodiazepines Screen Neg (NEGATIVE) Urine Cocaine Screen Neg (NEGATIVE) Urine Cannabinoids Screen Neg (NEGATIVE) Other Laboratory Tests 02/07/25 09:14 Brief Hx & Hospital Course: This is a 74-year-old male who was brought to the hospital due to ALOC. PMHx: COPD, hypertension, prediabetic, dyslipidemia, BPH and chronic back pain PSHx: Back surgery for herniated disc, right shoulder surgery Social history: Lives in [facility] with the family, ex-smoker with 25 pack year history, denies any other drug use Home medication: Buprenorphine, duloxetine, gabapentin, stool softener, omeprazole, Flomax, metformin, albuterol, Trelegy, Allergic history: No known allergy Per patient's and daughter, patient got disoriented around 45 minutes before hospital arrival, upon EMS arrival at the scene, patient was A&O x2. During my assessment patient reports cough and cold-like symptoms since 2 days. He has a sick contact with the (who suffers from cold). He denies chest pain, shortness of breath, nausea, vomiting, abdominal pain, or any recent travel. Patient has dental implant and removed sutures 5 days, has taken prophylactic antibiotic penicillin. On my initial assessment, I spoke to the daughter which stated that his that has been weak, lethargic, he had some diminishes before coming here, he stated that he has also been having swollen of his hands and feet. Patient was started on broad-spectrum antibiotics, he was also started on Lasix, an echocardiogram was also ordered, he was placed on DuoNebs. Patient has had significant clinical improvement, he was placed on room air and she tolerated well. MRSA nares were negative, echocardiogram showed an ejection fraction of 60-65% with mild diastolic dysfunction, RVSP of 36. Blood cultures did not show any growth. A CT of the chest without contrast was performed which demonstrated mild emphysema and pneumonia. Patient states feeling much better than on admission, he had significant clinical improvement, he currently denied any significant shortness of breath, chest pain, dizziness, lightheadedness, abdominal pain, nausea, vomiting, he is currently tolerating diet, ambulatory. Physical examination as below: General: Awake, alert, comfortable appearing, in no acute distress. HEENT: Head is normocephalic and atraumatic. Pupils are equal, round, and reactive to light. Neck: Supple with no cervical lymphadenopathy Heart: Regular rate without murmur, rub, or gallop. Lungs: Improved scattered crackles Abdomen: No external sign of injury. Bowel sounds are present. Abdomen is soft, nontender. No rebound, no guarding, no rigidity. There are no palpable masses. There is no flank pain on exam. Extremities: Strong peripheral pulses. There is no clubbing, no cyanosis, and mild nonpitting edema Skin: No rash. Neurologic: Cranial nerves II-XII intact without motor, sensory, or cerebellar deficit, no asterixis. Patient will be sent home and continue home medications as prescribed. She will continue taking cefpodoxime, azithromycin, albuterol p.r.n., patient will be follow up in the discharge clinic with Dr. Anaya. Aimeekatebartolo we have updated daughter and about patient's current status. Family members and patient agreed with the DC plan, we spent over 30 minutes explaining the plan. Case discussed with Dr. Aldana. Operations or Procedures [address] [address] Ph: [phone] DIAGNOSTIC IMAGING Diagnostic Imaging Report : [id number] Signed PATIENT: DEVANTE GIBBONS ACCT: [id number] UNIT: [id number] : 1950 LOC: ER ROOM / BED: / AGE / SEX: 74 / M ADM STATUS: REG ER SERVICE 9751 ORDERING PHYSICIAN: LUCÍA BARRON MD PROCEDURE(s): CXRP - CHEST PORTABLE REASON: pain ORDER NUMBER(s): [id number], ACCESSION NUMBER(s): [id number] CHEST RADIOGRAPH Indication: pain Technique: Single frontal view of the chest was obtained Comparison: None FINDINGS: Lines and Tubes: None Lungs: No focal consolidation. Pleura: No effusion. No pneumothorax. Cardiomediastinal contours: Unremarkable Bones: No acute osseous abnormality. IMPRESSION: 1. No acute cardiopulmonary disease. ATED BY: RODOLFO OSMAN MD DICTATED DATE/TIME: 02/05/251914 SIGNED BY: RODOLFO OSMAN MD SIGNED DATE/TIME: 02/05/251914 CC: [place] [id number] Ph: [phone] DIAGNOSTIC IMAGING Diagnostic Imaging Report : [id number] Signed PATIENT: DEVANTE GIBBONS ACCT: [id number] UNIT: [id number] : 1950 LOC: ER ROOM / BED: / AGE / SEX: 74 / M ADM STATUS: REG ER SERVICE 29 ORDERING PHYSICIAN: LUCÍA BARRON MD PROCEDURE(s): HWOCT - HEAD WITHOUT CONTRAST REASON: aloc ORDER NUMBER(s): [id number], ACCESSION NUMBER(s): [id number] CT BRAIN WITHOUT CONTRAST HISTORY: aloc TECHNIQUE: Axial scans were obtained from the skull base through the vertex without contrast. Sagittal and coronal reformats were generated. One or more of the following radiation dose reduction techniques were used for this examination: automated exposure control, adjustment of the mA and/or kV according to patient size, use of iterative reconstruction technique. COMPARISON: None FINDINGS: Mild generalized cerebral atrophy. No acute intracranial hemorrhage or evidence of large vessel territorial infarction identified at this time. No midline shift. The basilar cisterns are patent. The visualized paranasal sinuses and mastoid air cells are clear. No grossly displaced calvarial abnormalities identified. IMPRESSION: No acute intracranial findings. ATED BY: SHAUN BELL MD DICTATED DATE/TIME: 02/05/251916 SIGNED BY: SHAUN BELL MD SIGNED DATE/TIME: 02/05/251916 CC: [place] [address] Ph: [phone] DIAGNOSTIC IMAGING Diagnostic Imaging Report : [id number] Signed PATIENT: DEVANTE GIBBONS ACCT: [id number] UNIT: [id number] : 1950 LOC: [facility] ROOM / BED: [facility] / B AGE / SEX: 74 / M ADM STATUS: ADM IN SERVICE 1315 ORDERING PHYSICIAN: VARINDER ALDANA MD PROCEDURE(s): CXRHIRES - HI-RESOLUTION CHEST CT REASON: PNA ORDER NUMBER(s): [id number], ACCESSION NUMBER(s): [id number] CT Chest without intravenous contrast INDICATION: PNA TECHNIQUE: Multidetector spiral CT of the chest was performed from the lung apices to the upper abdomen. Axial, coronal and sagittal multiplanar reformats were performed. High-resolution CT protocol utilized. Radiation Dose : 1. Chest: CTDI volume is 41.86 mGy. Dose-length product is 2079.35 mGy*cm The dose indicators for CT are the volume Computed Tomography (CT) Dose Index (CTDIvol) and the Dose Length Product (DLP), and are measured in units of mGy and mGy-cm, respectively. These indicators are not patient dose, but values generated from the CT scanner acquisition factors. The report includes radiation exposure data for exposures received during this examination. Comparison: None Findings: Lower neck: Normal thyroid. Lungs: Mild centrilobular emphysema. Mild diffuse interlobular septal thickening. Diffuse tree-in-bud nodularity most prominent at the lung bases. Heart/Vascular Structures: Cardiomegaly. Coronary artery calcifications. Vascular calcifications of the aorta. Lymph Nodes: No adenopathy Pleura: No pleural effusion or significant pneumothorax. Musculoskeletal: No acute osseous abnormality. Degenerative changes of the spine. Soft tissues: Normal. Upper abdomen: Hepatic steatosis. Post cholecystectomy. Fatty atrophy of the pancreas. Moderate hiatal hernia. IMPRESSION: Mild interlobular septal thickening and diffuse tree-in-bud nodularity most prominent in the lung bases. This may represent atypical infectious or inflammatory process and possible mild pulmonary vascular congestion. Mild centrilobular emphysema. Radiation optimization: All CT scans at this facility use at least one of these dose optimization techniques: automated exposure control mA and/or kV adjustment per patient size (includes targeted exams where dose is matched to clinical indication) or iterative reconstruction. ATED BY: ADRIAN BENZ MD DICTATED DATE/TIME: 02/06/251543 SIGNED BY: ADRIAN BENZ MD SIGNED DATE/TIME: 02/06/251543 CC: [place] [address] Ph: [phone] DIAGNOSTIC IMAGING Diagnostic Imaging Report : [id number] Signed PATIENT: DEVANTE GIBBONS ACCT: [id number] UNIT: [id number] : 1950 LOC: [facility] AGE / SEX: 74 / M ADM STATUS: ADM IN SERVICE 04 ORDERING PHYSICIAN: FILIBERTO JOHN RESIDENT PROCEDURE(s): ECIDC - ECHO 2D MODE CARDIAC DOP REASON: CHF ORDER NUMBER(s): [id number], ACCESSION NUMBER(s): [id number] APPROVED REPORT EXAM: Two-dimensional and M-mode echocardiogram with Doppler and color Doppler. Blood Pressure: 132/75 mmHg INDICATION Heart Failure RISK FACTORS Height: 5'6", Weight: 176 DIMENSIONS LVDd 5.0 (3.8-5.7cm) LA (2D) 3.9 (1.9-4.0cm) Aortic Root 3.9 (2.0- 3.7cm) LVDs 3.6 (2.5-4.0cm) LA (MM) (1.9-4.0cm) Aortic Cusp Exc 1.5 (1.5- 2.0cm) EF (%) 55.0 (55-70%) Rt. Atrium 4.2 (1.9-4.0cm) Asc. Aorta 3.8 cm IVSd 1.0 (0.7-1.1cm) RV (D) 3.5 (1.8-2.4cm) PWd 1.3 (0.7-1.1cm) Mitral Valve Mitral Mitral Stenosis E wave 0.87m/s MV Mean GR. mmHg A wave 1.01m/s MV Peak GR. mmHg E/A ratio 0.9 2D MVA cm2 DECEL Time 164ms PRESS 1/2 Time ms Aortic Valve Aortic Valve Aortic Stenosis V1 0.74m/s AO Mean GR. 3mmHg V2 1.03m/s AO Peak GR. 4mmHg LVOT Diameter 2.3 (1.8-2.4cm) Doppler EZEQUIEL 2.98cm2 Pulmonic Valve V2 0.80m/s Tricuspid Valve TR Velocity 2.91m/s RVSP 37mmHg Conclusion Normal biventricular size and systolic function. LVEF 60-65%. Normal wall motion. Mild LVH. Grade 1 diastolic dysfunction. Mild TR. Trace PI. RVSP estimated at 36 mmHg + CVP. IVC not well seen. No pericardial effusion. 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 DICTATED BY: DICTATED DATE/TIME:02/05/25 6766 ELECTRONICALLY SIGNED BY: ELECTRONICALLY CO-SIGNED BY: Condition at Discharge: Guarded Final Diagnosis/Problems List #Metabolic encephalopathy, likely due to sepsis #Sepsis, likely due to pneumonia #Pneumonia, likely due to Gram-positive Gram-negative bacteria/viral, atypical #History of COPD #Chronic back pain due to herniated disc #Hypertension #Dyslipidemia #BPH #Prediabetic #Vitamin B 12 deficiency Discharge Disposition: Home Discharge Instruct/Medications Diet: Cardiac 2g Na,low cholest Activity: Light activity Follow Up/Referral: fu with pcp Medications: continue home meds as prescribed continue cefpodoxime and azithromycin Discharge Statement: "Patient was advised to return to the ER or call 911 if any headaches, dizziness, shortness of breath, chest pain, abdominal pain, bleeding, fevers, or worsening of medical condition. Patient was counseled about treatment plan, medications, possible side effects, patientverbalized understanding. All questions were answered to the best of my ability. This discharge took greater then 30 minutes in planning, reviewing documentation, counseling the patient, and discussing with other team members." ASSESSMENT ASSESSMENT Assessment Pneumonia Date of Service: Feb 07, 2025 Billing Provider: VARINDER ALDANA MD Common Visit Codes: [id number]/[id number] DISCH DAY >30min NORAH OLMSTEAD RESIDENT Feb 07, 2025 10:54 VARINDER ALDANA MD Feb 07, 2025 17:36
== END 2025-02-07 13:32 | disposition home or self-care (01) | DRG 871 ==
LOC: ER 17:13 → EDBD 17:13 → OVERFLOW 22:05 → TELE-WESTW 02-06 03:08
PROVIDERS: ADMIT Internal Medicine; ATTEND Internal Medicine
DX: A41.59 Other Gram-negative sepsis (principal); G93.41 Metabolic encephalopathy; J15.69 Pneumonia due to other Gram-negative bacteria; J15.9 Unspecified bacterial pneumonia; I50.31 Acute diastolic (congestive) heart failure; J12.9 Viral pneumonia, unspecified; J44.0 Chronic obstructive pulmonary disease with (acute) lower respiratory infection; N40.0 Benign prostatic hyperplasia without lower urinary tract symptoms; G89.29 Other chronic pain; E87.5 Hyperkalemia; E53.8 Deficiency of other specified B group vitamins; I11.0 Hypertensive heart disease with heart failure; Z79.899 Other long term (current) drug therapy; Z79.84 Long term (current) use of oral hypoglycemic drugs; Z79.891 Long term (current) use of opiate analgesic; R73.03 Prediabetes
CPT/HCPCS: 36415; 70450; 71045; 71250; 80048; 80053; 80061; 80202; 80307; 81001; 82306; 82607; 83036; 83605; 83735; 83880; 84100; 84443; 85025; 85610; 85730; 86141; 87040; 87081; 87086; 87426; 87804; 93005; 93306; 94640; 96365; 96375; 99291; G0378

== ENCOUNTER → 2025-03-04 | Outpatient (CLI) | payer MEDICARE ==
[~2025-03-04] MED LIST: ALBUAER3 IN; AML5T PO; ATOR40TA52 PO; AZIT-43 PO; BUPR2SUB SL; CEFP200T15 PO; CELE200C PO; CHOL20007 PO; CLON-1004 PO; CYAN500T3 PO; DULO60CA41 PO; FLUT1AER3 IN; GABA-339 PO; OMEP20TA PO; SENN-62 PO
[2025-03-04 11:16] LABS: Cholesterol 179 mg/dL (< 200)
[2025-03-04 11:17] LABS: HDL Cholesterol 44 mg/dL (40-59)
[2025-03-04 11:19] LABS: LDL Cholesterol 111 mg/dL (< 100); Triglycerides 163 mg/dL (< 150)
== END | disposition home or self-care (01) ==
LOC: LAB 10:36
PROVIDERS: ATTEND Internal Medicine
DX: Z12.11 Encounter for screening for malignant neoplasm of colon (principal); E11.22 Type 2 diabetes mellitus with diabetic chronic kidney disease; N18.9 Chronic kidney disease, unspecified; E55.9 Vitamin D deficiency, unspecified; J44.9 Chronic obstructive pulmonary disease, unspecified; Z79.899 Other long term (current) drug therapy
CPT/HCPCS: 36415; 80061; 82274; 82306; 84153

== ENCOUNTER → 2025-05-27 | Outpatient (CLI) | payer MEDICARE ==
[2025-05-27 09:41] LABS: Hematocrit 44.9 % (41.0-53.0); Hemoglobin 14.8 g/dL (13.5-17.5); Mean Corpuscular Hemoglobin 28.1 pg (28.0-32.0); Mean Corpuscular Volume 85.1 fL (80.0-100.0); Nucleated Red Blood Cells % 0.1 %
[2025-05-27 09:49] LABS: Urine Protein, UAD Negative (Negative)
[2025-05-27 09:59] LABS: Alanine Aminotransferase 20 U/L (7-40); Albumin 4.7 g/dL (3.2-4.8); Alkaline Phosphatase 67 U/L (46-116); Anion Gap 10 (5-15); BUN/Creatinine Ratio 10.2 (10.0-20.0); Bilirubin, Total 0.6 mg/dL (0.2-1.0); Blood Urea Nitrogen 11 mg/dL (9-23); Calcium 10.1 mg/dL (8.7-10.4); Carbon Dioxide 28 mmol/L (20-31); Chloride 104 mmol/L (98-107); HDL Cholesterol 54 mg/dL (40-59); Potassium 3.6 mmol/L (3.5-5.1); Sodium 142 mmol/L (136-145); Total Protein 7.2 g/dL (5.7-8.2)
[2025-05-27 10:04] LABS: Cholesterol 227 mg/dL (< 200); Glucose 114 mg/dL (74-106); Triglycerides 209 mg/dL (< 150)
== END | disposition home or self-care (01) ==
LOC: LAB 09:12
PROVIDERS: ATTEND Internal Medicine
DX: I10 Essential (primary) hypertension (principal); N40.0 Benign prostatic hyperplasia without lower urinary tract symptoms; J44.9 Chronic obstructive pulmonary disease, unspecified; K21.9 Gastro-esophageal reflux disease without esophagitis; Z79.899 Other long term (current) drug therapy
CPT/HCPCS: 36415; 80053; 80061; 81001; 83036; 84439; 84443; 85025